=== PATIENT | male | born 1995 | race Caucasian/White ===

== ENCOUNTER 2018-12-09 19:25 | Emergency (ER) | payer OTHER ==
[~2018-12-09] VITALS: Ht 175.3 cm; Wt 102.3 kg
[2018-12-09] MEDS ORDERED: TETRACAINE 0.5% OPHTH SOLN 4ML OS ONE (22:00)
[2018-12-09] MEDS ORDERED: FLUORESCEIN OPHTH 1 MG STRIP OS ONE (22:00)
[2018-12-09] MEDS ORDERED: POLYSOL OP (22:25)
[2018-12-09] MEDS ORDERED: POLYTRIM OPTH DROPS 10ML OS ONE (22:30)
[2018-12-09 22:40] VITALS: BP 131/79
== END 2018-12-09 22:51 | disposition home or self-care (01) ==
LOC: M ED 19:25
DX: H10.9 Unspecified conjunctivitis (principal)